=== PATIENT | female | born 2000 | race African-American/Black ===

== ENCOUNTER 2018-04-12 22:59 | Emergency (ER) | payer MEDICAID ==
[~2018-04-12] VITALS: Ht 157.5 cm; Wt 60.8 kg
[2018-04-12 23:09] VITALS: Ht 157.5 cm; Wt 60.8 kg
[2018-04-13 00:14] VITALS: BP 111/62
== END 2018-04-13 00:14 | disposition home or self-care (01) ==
LOC: ED 22:59
DX: R19.7 Diarrhea, unspecified (principal); R10.84 Generalized abdominal pain; R11.10 Vomiting, unspecified

== ENCOUNTER 2018-12-14 09:51 | Emergency (ER) | payer OTHER ==
[~2018-12-14] VITALS: Ht 152.4 cm; Wt 61.7 kg
[2018-12-14 10:06] VITALS: Ht 152.4 cm; Wt 61.7 kg
[2018-12-14 11:52] LABS: BASOPHIL % 0.3 % (0-2); PLATELET COUNT 311 x10^3mcL (130-400); RED CELL DISTRIBUTION WIDTH 14.9 % (11.5-14.5)
[2018-12-14 12:05] LABS: CALCIUM 8.5 mg/dL (8.5-10.1); CARBON DIOXIDE 26.5 mmol/L (21-32); CHLORIDE SERUM 105 mmol/L (98-107); CREATININE SERUM 0.6 mg/dL (0.6-1.0); GFR1 > 60 mL/min; GLUCOSE SERUM 83 mg/dL (74-106); POTASSIUM SERUM 4.2 mmol/L (3.5-5.1); SODIUM SERUM 139 mmol/L (136-145)
[2018-12-14 12:17] LABS: ALBUMIN 3.5 g/dL (3.4-5.0); ALKALINE PHOSPHATASE 74 U/L (46-116); ALT/SGPT 19 U/L (14-59); AST/SGOT 12 U/L (15-37); BILIRUBIN TOTAL 0.42 mg/dL (0.20-1.00); T4(THYROXINE) 11.4 ug/dL (4.7-13.3)
[2018-12-14 13:01] VITALS: BP 101/49
== END 2018-12-14 13:37 | disposition home or self-care (01) ==
LOC: ED 09:51
PROVIDERS: Emergency Medicine
DX: N94.6 Dysmenorrhea, unspecified (principal); Z98.890 Other specified postprocedural states
CPT/HCPCS: 36415; J1885